=== PATIENT | male | born 1955 | race Caucasian/White ===

== ENCOUNTER 2016-07-06 20:11 | Emergency (ER) | payer MEDICARE, OTHER ==
[~2016-07-06 20:11] MED LIST: CAT1 PO; NEUR300 PO; REMERON30 MG PO
== END 2016-07-06 22:48 | disposition home or self-care (01) ==
LOC: ER 20:11
DX: I97.630 Postprocedural hematoma of a circulatory system organ or structure following a cardiac catheterization (principal); M79.609 Pain in unspecified limb; I10 Essential (primary) hypertension; Z79.899 Other long term (current) drug therapy
CPT/HCPCS: 93926; 99283